=== PATIENT | male | born 1980 | race Two or more races ===

== ENCOUNTER 2023-09-23 05:24 | Emergency (ER) | payer SELFPAY ==
[~2023-09-23] VITALS: Ht 188 cm; Wt 93.0 kg
[2023-09-23 05:50] VITALS: BP 123/79; PULSE 99; RESP 18; O2SAT 100
== END 2023-09-23 21:03 | disposition left against medical advice (07) ==
LOC: ER 05:24
DX: R44.0 Auditory hallucinations (principal); M79.10 Myalgia, unspecified site